=== PATIENT | female | born 1980 | race Asian ===

== ENCOUNTER 2023-06-28 15:15 | Inpatient (IN) | payer OTHER ==
[2023-06-28] MEDS ORDERED: SODIUM CHLORIDE 1,000 ML IV SCH (15:30)
[2023-06-28] MEDS ORDERED: BETAMET ACET/BETAMET NA PH 30 MG/5 ML VIAL ONE (15:54)
[2023-06-28] MEDS: BETAMET ACET/BETAMET NA PH 30 MG/5 ML VIAL IM SCH (16:00)
[2023-06-28 16:06] LABS: BASO % 0.5 % (0-2.0); EOS % 1.7 % (0-4.5); HEMATOCRIT 38.2 % (32.4-45.2); HEMOGLOBIN 12.7 GM/dL (10.7-15.3); LYMPH % 15.8 % (8-40); MCH 29.3 pg (25.7-33.7); MCHC 33.1 g/dl (32.0-36.0); MEAN CELL VOLUME 88.5 fl (80-96); MEAN PLT VOLUME 7.7 fl (7.5-11.1); MONO % 11.1 % (3.8-10.2); NEUT % 70.9 % (42.8-82.8); PLATELET COUNT 341 10^3/uL (134-434); RBC 4.32 M/mm3 (3.60-5.2); RDW 14.1 % (11.6-15.6); WHITE BLOOD COUNT 10.5 K/mm3 (4.0-10.0)
[2023-06-28 16:15] LABS: INR 0.9 (0.83-1.09); PROTHROMBIN TIME (PATIENT) 10.5 SEC (9.7-13.0)
[2023-06-28 16:17] LABS: ACTIVATED PTT 25.2 SECONDS (25.2-36.5)
[2023-06-28 16:35] LABS: POTASSIUM 4.5 mmol/L (3.5-5.1)
[2023-06-28 16:38] LABS: BLOOD UREA NITROGEN 6.5 mg/dL (7-18)
[2023-06-28 16:42] LABS: CREATININE 0.5 mg/dL (0.55-1.3)
[2023-06-28 17:17] VITALS: BMI 34.9
[2023-06-28] MEDS ORDERED: SODIUM CHLORIDE 1,000 ML IVPB SCH (17:30)
[2023-06-28 19:32] LABS: ANISOCYTOSIS 1+; MACROCYTOSIS 1+; OVALOCYTE 1+; TEAR DROP CELLS 1+
[2023-06-28 20:00] LABS: PLATELET ESTIMATE ADEQUATE
[2023-06-28] MEDS: LABETALOL HCL 200 MG TABLET (FP) PO SCH (21:33)
[2023-06-29] MEDS ORDERED: NIFEdipine E.R 60 MG TABLET PO SCH (10:00)
[2023-06-29] MEDS ORDERED: ENOXAPARIN NA (PORCINE) 40 MG/0.4 ML DISP.SYRIN SQ SCH (10:00)
[2023-06-29] MEDS: LABETALOL HCL 200 MG TABLET (FP) PO SCH (10:27)
[2023-06-29 11:13] VITALS: TEMP 97.6
[2023-06-29 14:45] VITALS: BP 120/71; PULSE 90; RESP 17
[2023-06-29] MEDS: BETAMET ACET/BETAMET NA PH 30 MG/5 ML VIAL IM SCH (16:33)
== END 2023-06-29 17:40 | disposition home or self-care (01) | DRG 566 ==
LOC: JLDR 15:15 → J3W 18:00
PROVIDERS: ADMIT Obstetrics & Gynecology Maternal & Fetal Medicine; ATTEND Obstetrics & Gynecology Maternal & Fetal Medicine
DX: O41.03X0 Oligohydramnios, third trimester, not applicable or unspecified (principal); O10.913 Unspecified pre-existing hypertension complicating pregnancy, third trimester; Z3A.33 33 weeks gestation of pregnancy
CPT/HCPCS: 36415; 80048; 85025; 85610; 85730; 86780; 86850; 86900; 86901; 96372

== ENCOUNTER 2023-07-25 06:51 | Inpatient (IN) | payer OTHER ==
[2023-07-25] MEDS: DEXTROSE 5%-LACTATED RINGERS 1,000 ML IV SCH (07:00)
[2023-07-25 07:53] VITALS: BMI 35.1
[2023-07-25] MEDS: CITRIC ACID/SODIUM CITRATE 30 ML UNIT-DOSE CUP PO ONE (08:57)
[2023-07-25] MEDS ORDERED: FENTANYL CITRATE/PF 50 MCG/ML VIAL ONE (09:00)
[2023-07-25] MEDS ORDERED: morphine SULFATE/PF 1 MG/2 ML (2cc Syringe - QUVA) ONE (09:00)
[2023-07-25] MEDS ORDERED: ceFAZolin SODIUM 1 GM VIAL ONE (09:26)
[2023-07-25] MEDS ORDERED: OXYTOCIN 10 UNITS/ML VIAL ONE (09:54)
[2023-07-25 10:24] LABS: CORD BASE EXCESS -3.3 mmol/L (0-2); CORD HCO3 23.3 mmHg (20-29); CORD PCO2 47.6 mmHg (30-78); CORD pH 7.308 (7.14-7.44)
[2023-07-25] MEDS: OXYTOCIN 20 UNITS in 0.9% NS 20 UNIT/1,000 ML INFUS.BAG IV SCH (11:00)
[2023-07-25] MEDS ORDERED: ACETAMINOPHEN 325 MG TABLET (FP) PO PRN (11:04)
[2023-07-25] MEDS ORDERED: OXYTOCIN 20 UNITS in 0.9% NS 20 UNIT/1,000 ML INFUS.BAG IV ONE (18:57)
[2023-07-25] MEDS ORDERED: oxyCODONE HCL 5 MG TABLET PO PRN (23:04)
[2023-07-26] MEDS: IBUPROFEN 600 MG TABLET (FP) PO PRN (03:13)
[2023-07-26 07:38] LABS: BASO % 0.3 % (0-2.0); EOS % 1.2 % (0-4.5); HEMATOCRIT 32.2 % (32.4-45.2); HEMOGLOBIN 10.6 GM/dL (10.7-15.3); LYMPH % 10.1 % (8-40); MCH 29.7 pg (25.7-33.7); MEAN PLT VOLUME 7.5 fl (7.5-11.1); MONO % 8.9 % (3.8-10.2); NEUT % 79.5 % (42.8-82.8); PLATELET COUNT 238 10^3/uL (134-434); RBC 3.58 M/mm3 (3.60-5.2); WHITE BLOOD COUNT 14.5 K/mm3 (4.0-10.0)
[2023-07-27 22:35] VITALS: RESP 18
[2023-07-28 07:32] LABS: BASO % 0.5 % (0-2.0); EOS % 2.4 % (0-4.5); HEMATOCRIT 30.7 % (32.4-45.2); HEMOGLOBIN 10.2 GM/dL (10.7-15.3); LYMPH % 14.6 % (8-40); MCHC 33.3 g/dl (32.0-36.0); MEAN CELL VOLUME 89.9 fl (80-96); MEAN PLT VOLUME 7.3 fl (7.5-11.1); MONO % 6.9 % (3.8-10.2); NEUT % 75.6 % (42.8-82.8); PLATELET COUNT 303 10^3/uL (134-434); RBC 3.41 M/mm3 (3.60-5.2); RDW 14.9 % (11.6-15.6); WHITE BLOOD COUNT 10.4 K/mm3 (4.0-10.0)
[2023-07-28 09:54] VITALS: BP 134/82; PULSE 94; TEMP 98.4
== END 2023-07-28 14:25 | disposition home or self-care (01) | DRG 540 ==
LOC: JLDR 06:51 → J3W 13:25
PROVIDERS: ADMIT Obstetrics & Gynecology Maternal & Fetal Medicine; ATTEND Obstetrics & Gynecology Maternal & Fetal Medicine
PROC: 10D00Z1 Extraction of Products of Conception, Low, Open Approach (ICD-10-PCS; principal; 2023-07-25)
DX: O32.1XX0 Maternal care for breech presentation, not applicable or unspecified (principal); O41.03X0 Oligohydramnios, third trimester, not applicable or unspecified; O10.92 Unspecified pre-existing hypertension complicating childbirth; O99.113 Other diseases of the blood and blood-forming organs and certain disorders involving the immune mechanism complicating pregnancy, third trimester; Z3A.37 37 weeks gestation of pregnancy; Z37.0 Single live birth; Z87.59 Personal history of other complications of pregnancy, childbirth and the puerperium
CPT/HCPCS: 36415; 36600; 80053; 82803; 85025; 85610; 86780; 86850; 86900; 86901; 87389; 88307-TC; 94010